=== PATIENT | female | born 1970 | race Caucasian/White ===

== ENCOUNTER → 2024-03-06 14:03 | Outpatient (REF) | payer OTHER, SELFPAY | LOC: WDC 14:03 | PROVIDERS: ATTENDING PHYSICIAN Family Medicine | DX: Z12.31 Encounter for screening mammogram for malignant neoplasm of breast (principal) | CPT/HCPCS: 77063; 77067 ==

== ENCOUNTER → 2025-03-07 10:53 | Outpatient (REF) | payer OTHER, SELFPAY | LOC: WDC 10:53 | PROVIDERS: ATTENDING PHYSICIAN Obstetrics & Gynecology; FAMILY PHYSICIAN Family Medicine | DX: Z12.31 Encounter for screening mammogram for malignant neoplasm of breast (principal) | CPT/HCPCS: 77063; 77067 ==

== ENCOUNTER → 2025-03-19 08:45 | Outpatient (REF) | payer OTHER, SELFPAY | LOC: WDC 08:45 | PROVIDERS: ATTENDING PHYSICIAN Obstetrics & Gynecology; FAMILY PHYSICIAN Family Medicine | DX: R92.8 Other abnormal and inconclusive findings on diagnostic imaging of breast (principal) | CPT/HCPCS: 76642 ==

== ENCOUNTER 2025-05-19 01:24 | Emergency (ER) | payer OTHER, SELFPAY ==
[2025-05-19 01:25] VITALS: BP 175/98
[2025-05-19 01:58] VITALS: BP 137/78
[2025-05-19 02:00] VITALS: BP 133/82
[2025-05-19 03:28] LABS: Hematocrit 42.9 % (37.0-47.0); Hemoglobin 14.1 g/dL (12.0-16.0); Mean Corp Hgb Conc. 32.9 g/dL (33.0-37.0); Mean Corpuscular Volume 84.0 fL (81.0-99.0); Nucleated Red Blood Cells % 0 %; Platelet Count 274 10^3/uL (130-400); Red Cell Dist. Width 12.7 % (11.5-14.5)
[2025-05-19 03:35] LABS: INR 0.95; PT 12.9 Sec (11.4-14.6)
[2025-05-19 03:36] LABS: APTT 27.3 Sec (23.4-35.0)
[2025-05-19 03:39] LABS: ALT (SGPT) 22 U/L (0-35); AST (SGOT) 27 U/L (14-36); Albumin 4.6 g/dl (3.5-5.0); Alkaline Phosphatase 47 U/L (38-126); Blood Urea Nitrogen 13 mg/dl (7-17); Calcium 9.7 mg/dl (8.4-10.2); Carbon Dioxide 30 mmol/L (22-30); Chloride 104 mmol/L (98-107); Glucose 104 mg/dl (70-99); Lipase 668 U/L (23-300); Potassium 3.9 mmol/L (3.5-5.1); Sodium 142 mmol/L (135-145); Total Protein 7.5 g/dl (6.3-8.2); eGFR > 60.00
[2025-05-19 03:50] LABS: Troponin I < 0.012 ng/ml
[2025-05-19 04:52] VITALS: BP 128/71
[2025-05-19 04:53] VITALS: BMI 23.2
[2025-05-19 05:00] VITALS: BP 125/70
--- NOTE | 2025-05-19 06:23 | ED.GENMED ---
History of Present Illness
General
Chief Complaint: Blood Pressure Problem
Source: patient and family
Time Seen by Provider: 05/19/25 02:56
Nursing documentation reviewed up to this point in time: agreed with
History of Present Illness
History of Present Illness:
Note:
CHIEF COMPLAINT(S)
Elevated blood pressure and intermittent chest pain.
HISTORY OF PRESENT ILLNESS
The patient is a 55-year-old male with a recent history of elevated blood pressure. He reported that, on May 06, he engaged in running for an hour without any issues, followed by walking on May 07. However, on May 08, he
experienced a persistent headache throughout the day and felt as though he might be developing flu-like symptoms, although he did not have a fever. Subsequently, his blood pressure readings fluctuated, initially in the range of 130-something over 80
and, most concerningly, rising to 170-something over 98 on the night of the encounter. Upon arrival at the facility, his blood pressure had decreased to 133 over 82. The patient expressed concern about episodic chest pain occurring during periods of
stress, although he denied experiencing chest pain at the time of the visit. He expressed worry that the chest pain might be indicative of a more serious cardiac condition, though he acknowledged that it did not match his perception of heart
attack-related pain.
The patient also mentioned significant stress related to his parents, who are residing in a conflict zone in [facility], attributing his heightened stress level to their situation.
SOCIAL DETERMINANTS AFFECTING HEALTH
The patient reported familial stress related to his parents residing in [facility], who are in a conflict zone and experiencing life-threatening conditions. This situation has contributed to his stress levels, potentially affecting his blood pressure.
PHYSICAL EXAM
General: Alert, no acute distress.
Skin: Warm, dry.
Head: Normocephalic, atraumatic.
Neck: Supple, trachea midline.
Eye Ears, nose, mouth and throat: Oral mucosa moist.
Cardiovascular: Normal peripheral perfusion, No edema.
Respiratory: Respirations are non-labored.
Gastrointestinal: Abdomen nondistended.
Back: Normal range of motion, Normal alignment.
Musculoskeletal: Normal range of motion, normal strength.
Neurological: Alert and oriented to person, place, time, and situation, No focal neurological deficit observed.
Psychiatric: Cooperative, appropriate mood & affect.
PLAN
A full cardiac workup is being conducted, including blood tests and an electrocardiogram (EKG). The EKG was noted to be absolutely normal. Blood samples will be drawn for further analysis. The patient is advised to follow up with his family
physician if the blood pressure fluctuations persist, although no immediate prescription medication is planned at this time.
DIFFERENTIAL DIAGNOSIS
The Differential Diagnosis includes, in no particular order and is not limited to:
1. Hypertension
2. Anxiety or stress-induced hypertension
3. Hyperthyroidism
4. Secondary hypertension
5. Coronary artery disease
6. Pheochromocytoma
7. Renal artery stenosis
8. Sleep apnea
9. Aortic dissection
10. Essential hypertension
Disposition:
SUMMARY OF ENCOUNTER
The patient, a 55-year-old female, presented with high blood pressure. During the emergency department evaluation, lab work revealed an elevated lipase level, and a CT scan showed constipation but no other abnormalities. Troponin levels were
negative. The patient�s blood pressure decreased naturally during the visit. She was advised to follow up with her primary care provider.
DISPOSITION
Discharge
ASSESSMENT
The patient was assessed for high blood pressure, with findings indicating possible anxiety and constipation, contributing to her condition.
PLAN
The patient is advised to follow up with her primary care provider for further management of hypertension, anxiety, and constipation.
INDEPENDENT REVIEW OF LABS AND INTERPRETATION OF TESTS
- My independent review of the lipase indicates that it is elevated.
- My independent review of the troponin test is negative.
PATIENT EDUCATION AND COUNSELING
The patient was informed about her current condition, including hypertension, anxiety, and constipation, and was advised on the importance of following up with her primary care provider for continued management.
FOLLOW-UP INSTRUCTIONS
The patient is instructed to contact her primary care provider to schedule a follow-up visit for management of hypertension, anxiety, and constipation.
MEDICAL DECISION MAKING
- Complexity of Data Reviewed: Chronic conditions affecting care include hypertension and anxiety. Differential diagnosis includes anxiety or stress-induced hypertension, essential hypertension, and constipation.
- Data:
Category 1
- My independent interpretation of the CT scan showed constipation without other issues.
- Risk:
Consideration of Admission/Observation: Escalation of care including admission/observation was considered given the complexity and risk of the patients presenting complaint, exam findings, and/or their underlying comorbidities. However, ultimately,
I feel the patient is safe for outpatient management with close follow-up. Reasoning: Work-up reassuring, does not reveal any acute life/organ-threatening processes, patients symptoms well controlled upon reevaluation, reexamination is reassuring,
vitals are stable, patient agreeable with discharge, reliable for follow-up.
DIAGNOSIS
- Hypertension (I10)
- Anxiety (F41.9)
- Constipation (K59.00)
Past History
Past History
ED Past Medical History: Other (seasonal/environmental allergies, and Hodgkin's lymphoma)
ED Past Surgical History: Other
Social History
Tobacco: Non-smoker
Drug: None
Personal:
Living: with family
Employment: Employed
Family History
Family History: Other
Phy Exam
Physical Exam
Physical Exam:
.
Course
Orders/Labs/Results
Orders:
Orders
05/19/25 01:29
EKG [Electrocardiogram (*1)] Urgent
Reason for Study: Hypertension, Benign
EKG- Treatment ONCE
05/19/25 03:19
Complete Blood Count/With Diff Urgent
Comprehensive Metabolic Panel Urgent
Lipase Urgent
PTT Urgent
Prothrombin Time Urgent
Troponin I Urgent
05/19/25 04:42
CT Abd/Pel (IV only)-DH only Urgent
Comment:
Reason For Exam: elevated lipase
Abnormal Lab Results
05/19/25
03:19
WBC 4.3 L 10^3/uL
(4.8-10.8)
MCHC 32.9 L g/dL
(33.0-37.0)
Absolute Lymphs (auto) 1.1 L 10^3/uL
(1.2-3.4)
Creatinine 0.5 L mg/dL
(0.6-1.0)
Glucose 104 H mg/dl
(70-99)
Lipase 668 H U/L
(23-300)
05/19/25 03:19
05/19/25 03:19
Vital Signs
Initial and Last Documented VS:
Initial Vital Signs
Temp Pulse Resp BP Pulse Ox
98.6 F 91 22 175/98 98
05/19/25 01:25 EST 05/19/25 01:25 EST 05/19/25 01:25 EST 05/19/25 01:25 EST 05/19/25 01:25 EST
Last Documented Vital Signs
Temp Pulse Resp BP Pulse Ox
98.6 F 88 15 125/70 100
05/19/25 01:25 EST 05/19/25 06:00 05/19/25 06:00 05/19/25 05:00 05/19/25 06:28
*Pulse Oximetry
SaO2: 100
Oxygen Mode of Delivery: Room air
Patient hypoxic: no
*Critical Care Note
Total Time (30-74mins, 75-104mins- exclusive of procedures): Not Applicable
ED Attending Note
-
Portions of this chart may have been created with voice recognition software.� Occasional wrong word or��sound alike� substitutions may have occurred due to the inherent limitations of voice recognition software.
Discharge Plan
Departure
Patient Disposition: Home (Routine Discharge)
Date of Disposition: 05/19/25
Time of Disposition: 06:32
Patient with high blood pressure during this ER visit?: Yes
Discharge Problem:
Hypertension, Constipation, Elevated lipase
Instructions: High Blood Pressure (DC), Lipase test, Constipation in adults - ED (DC)
Prescriptions:
No Action
levothyroxine 25 mcg Tablet
25 mcg PO DAILY
Referrals:
Hiro Colon, [Family Provider, Family Practice]
Activity Restrictions/Additional Instructions:
Please follow-up with your family doctor to repeat your lipase test in 2 to 3 weeks.
Thank You for choosing [facility].
It was a pleasure meeting you and taking part in your care. We hope for your continued healing and wellness.
Please read discharge instructions in their entirety. However, they are for general education and may not describe your exact diagnosis at discharge. Information on your ER visit and medical conditions were discussed with you along with appropriate
follow up information...
If indicated, please take your medications as instructed and indicated on discharge paperwork.
Please schedule a follow up appointment as directed. Call to schedule an appointment
Please return to the emergency department with ANY change in, persisting, or worsening of symptoms. If any of your symptoms do not improve, or persist, or become more severe within 6-12 hours, please return to the emergency department for further
care.
Please return to the emergency department if you develop a headache, neck pain/stiffness, fever greater than 100.4F, chest pain, shortness of breath, persistent nausea, vomiting, slurred speech, difficulty walking, numbness/tingling, weakness, signs
of infection or any other symptoms that are worrisome to you.
If you have any questions or concerns please do not hesitate to call the Hospital at .
Interventions
Interventions:
*Risk Screen - Suicide Last Done: 05/19/25 01:25
*General Assessment Last Done: 05/19/25 01:25
*Neglect/Abuse Screening Last Done: 05/19/25 01:25
*ED- Fall Risk Assessment Last Done: 05/19/25 01:59
*ED COVID-19 Vaccine History Last Done: 05/19/25 01:59
*ED Influenza Vaccine History Last Done: 05/19/25 01:59
*Nursing Disposition Last Done: 05/19/25 06:47
ED- Cardiac Assessment Last Done: 05/19/25 01:59
ED- Neurological Assessment Last Done: 05/19/25 01:59
ED- Pulmonary Assessment Last Done: 05/19/25 01:59
Discharge Date and Time
Discharge Date/Time: 05/19/25 06:47
Print Language: MALAYSIAN
== END 2025-05-19 06:47 | disposition home or self-care (01) ==
LOC: EMR 01:24
PROVIDERS: EMERGENCY PHYSICIAN Student in an Organized Health Care Education/Training Program; FAMILY PHYSICIAN Family Medicine
DX: I10 Essential (primary) hypertension (principal); K59.00 Constipation, unspecified; R74.8 Abnormal levels of other serum enzymes; Z63.8 Other specified problems related to primary support group; Z85.71 Personal history of Hodgkin lymphoma
CPT/HCPCS: 99284; 74177; 80053; 83690; 84484; 85025; 85610; 85730; 93005; Q9967